=== PATIENT | female | born 1965 | race Caucasian/White ===

== ENCOUNTER 2017-09-15 18:50 | Emergency (ER) | payer SELFPAY ==
[2017-09-15 20:55] LABS: BASO # 0.1 K/uL (0.0-0.2); BASO % 1.1 % (0.0-2.0); EOS # 0.2 K/uL (0.0-0.7); EOS % 2.8 % (0.0-4.0); HEMOGLOBIN 14.6 g/dL (11.0-16.0); LYMPH # 1.8 K/uL (1.0-4.3); LYMPH % 26.7 % (20.0-40.0); MEAN CELL VOLUME 83.4 fL (81.0-99.0); MEAN CORPUSCULAR HEMOGLOBIN 29.2 pg (27.0-31.0); MEAN PLATELET VOLUME 8.1 fL (7.2-11.7); MONO # 0.7 K/uL (0.0-0.8); MONO % 9.5 % (0.0-10.0); NEUT # 4.1 K/uL (1.8-7.0); NEUT % 59.9 % (50.0-75.0); RBC 4.99 Mil/uL (3.80-5.20); RED CELL DISTRIBUTION WIDTH 13.8 % (11.5-14.5); WHITE BLOOD COUNT 6.9 K/uL (4.8-10.8)
[2017-09-15 21:09] LABS: ALBUMIN 4.2 g/dL (3.5-5.0); ALT/SGPT 31 U/L (9-52); AST/SGOT 23 U/L (14-36); BLOOD UREA NITROGEN 7 mg/dL (7-17); CALCIUM 9.5 mg/dl (8.6-10.4); GFR AFRICAN-AMERICAN > 60; GFR NON-AFRICAN AMERICAN > 60
--- NOTE | 2017-09-15 22:38 | C.PDOC ---
History Of Present Illness Pt c/o right arm pain. Denies injury. Time Seen by Provider: 09/15/17 19:48 Chief Complaint (Nursing): Upper Extremity Problem/Injury History Per: Patient Onset/Duration Of Symptoms: Days (1) Current Symptoms Are (Timing): Still Present Quality: "Pain" Severity: Moderate Exacerbating Factor(s): Strenuous Use Of Affected Area, Movement Additional History Per: Prior Records Past Medical History Reviewed: Historical Data, Nursing Documentation, Vital Signs Vital Signs: Last Vital Signs Temp 98.1 F 09/15/17 18:59 Pulse 83 09/15/17 21:08 Resp 20 09/15/17 21:08 BP 167/97 H 09/15/17 21:08 Pulse Ox 95 09/15/17 21:08 - Medical History PMH: HTN Family History: States: Unknown Family Hx - Social History Hx Alcohol Use: No Hx Substance Use: No - Immunization History Hx Tetanus Toxoid Vaccination: No Hx Influenza Vaccination: Yes Review Of Systems Except As Marked, All Systems Reviewed And Found Negative. Constitutional: Negative for: Fever, Weakness Cardiovascular: Negative for: Chest Pain Respiratory: Negative for: Shortness of Breath Gastrointestinal: Negative for: Vomiting, Abdominal Pain Musculoskeletal: Positive for: Arm Pain (right). Negative for: Neck Pain Skin: Negative for: Rash Neurological: Negative for: Weakness, Numbness, Seizures, Altered Mental Status , Headache Physical Exam - Physical Exam Appears: Non-toxic, No Acute Distress Skin: Normal Color, Warm, Dry, No Rash Head: Atraumatic, Normacephalic Eye(s): bilateral: Normal Inspection, PERRL, EOMI Neck: Normal ROM, Supple Cardiovascular: Rhythm Regular Respiratory: Normal Breath Sounds, No Accessory Muscle Use Gastrointestinal/Abdominal: Soft, No Tenderness Back: No Vertebral Tenderness Extremity: Normal ROM (but painful in right shoulder/arm), Tenderness (right arm ), Capillary Refill (wnl), No Deformity, No Swelling Extremity: Bilateral: Normal Color And Temperature Pulses: Right Radial: Normal Neurological/Psych: Oriented x3, Normal Motor, Normal Sensation ED Course And Treatment - Laboratory Results Result Diagrams: 09/15/17 20:52 09/15/17 20:52 Lab Interpretation: No Acute Changes ECG: Interpreted By Me, Viewed By Me ECG Rhythm: Sinus Rhythm ECG Interpretation: No Acute Changes Rate From EC O2 Sat by Pulse Oximetry: 95 Pulse Ox Interpretation: Normal Progress Note: Pt was found to be hypertensive. Pt states that she has not been taking her HCTZ 12.5mg. Pt's pain and BP improved after meds. Reassessment Condition: Improved Progress - Interventions Interventions:: Observation - Medications Administered Oral: Antihypertensive Intravenous: NSAID - Data Reviewed Data Reviewed: Lab, EKG, Old records - Patient Status Patient status: Mostly improved - Continuity of Care Discussed patient case with:: Patient, ED Nurse - Patient Plan Patient Plan: Discharge, F/U with PCP Disposition Counseled Patient/Family Regarding: Studies Performed, Diagnosis, Need For Followup, Rx Given - Disposition Referrals: Bryant Gonzalez MD [Staff Provider] - Disposition: HOME/ ROUTINE Disposition Time: 22:41 Condition: IMPROVED Additional Instructions: Follow up with your doctor this week for further evaluation and treatment. Return to the ER if you develop redness, swelling, chest pain, shortness of breath, weakness, numbness, worsening of symptoms or if you have any other concerns. Prescriptions: hydroCHLOROthiazide [Microzide] 12.5 mg PO DAILY #30 cap Naproxen [Naprosyn] 1 tab PO BID PRN #20 tab PRN Reason: Pain Instructions: High Blood Pressure (DC), Shoulder Tendinopathy (DC) - Clinical Impression Clinical Impression: Biceps tendinitis of right upper extremity, Uncontrolled hypertension
[2017-09-15 22:49] VITALS: BP 153/91; PULSE 75; RESP 18; TEMP 98.4; O2SAT 96
--- NOTE | 2017-09-17 19:25 | CARD ---
APPROVED REPORT EKG Measurement Heart [id number] <Conclusion> Normal sinus rhythm Normal ECG
== END 2017-09-15 23:03 | disposition home or self-care (01) ==
LOC: C.ER 18:50
DX: M75.21 Bicipital tendinitis, right shoulder (principal); I10 Essential (primary) hypertension
CPT/HCPCS: 80053; 83735; 84484; 85025; 93005; 96374; 99284; J1885